=== PATIENT | male | born 1990 | race Caucasian/White ===

== ENCOUNTER 2024-01-26 01:44 | Observation (INO) ==
[2024-01-26] MEDS: SODIUM CHLORIDE 0.9% 1,000 ML IV SCH (02:10)
--- NOTE | 2024-01-26 02:15 | Emergency Department Note ---
Impression & Plan Pulmonary emboli, Chest pain, Shortness of breath, Tachycardia ED Provider Note CHIEF COMPLAINT: Shortness of breath, right-sided chest pain since Wednesday HISTORY OF PRESENT ILLNESS: This 34-year-old male patient presents to the emergency department via private vehicle accompanied by father for evaluation of shortness of breath and right-sided chest pain. This has been ongoing for about 3 days. Patient denies any fever. He states he has had a cough. He states the pain started in the right upper portion of his chest and is now radiating around the side. He states that any physical activity or position changes worsens his symptoms. He feels that his breath catches and he is not able to get a deep breath. He denies any fever or recent illness. No nausea or vomiting. No abdominal pain. No dysuria, urinary frequency, urinary hesitancy, hematuria. The patient denies any leg pain or swelling. No history of similar symptoms. He denies any recent trauma or injury. Patient initially thought symptoms were related to muscular pain from throwing a ball for his dog, he notes he did take some Aleve with some improvement in his pain on Wednesday, but has not been regularly taking this medication. Patient denies any coughing up blood. REVIEW OF SYSTEMS: A 10 system review of systems was performed with positives and pertinent negatives listed in the history of present illness. All other systems were reviewed and are negative. ALLERGIES: NKDA PHYSICAL EXAM: VITALS: Vitals are noted on the nurse's note and reviewed by myself. Patient is tachycardic. GENERAL: This is a 34-year-old male, in no acute distress, nondiaphoretic, well- developed well-nourished. SKIN: The skin was without rashes, erythema, edema, or bruising. There is no tenting of the skin. Capillary refill less than 2 seconds. HEAD: Normocephalic atraumatic. EARS: External auditory canals clear, tympanic membranes pearly theodore without erythema or effusion bilaterally. No hemotympanum. Negative kaufman sign EYES: Pupils equal round and reactive to light and accommodation. Conjunctivae without injection, sclerae without icterus. Extraocular movements intact. NOSE: Patent, turbinates without inflammation or discharge. No sinus tenderness. MOUTH: Mucous membranes moist. Tonsils are not enlarged. Pharynx without erythema or exudate. Uvula midline. Airway patent. Tongue does not deviate. NECK: Supple without nuchal rigidity. No lymphadenopathy. Cervical spine is nontender. No JVD. CHEST: Right anterior lateral reproducible chest wall tenderness to palpation HEART: Regular rate and rhythm without murmurs gallops or rubs. LUNGS: Clear to auscultation bilaterally without wheezes, rales or rhonchi. No retractions or accessory muscle use. ABDOMEN: Positive bowel sounds x 4. Soft, nontender, without masses or organomegaly. Francis sign negative. No guarding or rebound tenderness. MUSCULOSKELETAL: No muscle atrophy, erythema, or edema noted. Full range of motion without joint tenderness in all extremities. No tenderness to palpation. Normal gait. Strength 5/5 throughout. NEURO: Patient was alert and oriented to person place and time. Normal sensation to light and sharp touch. Deep tendon reflexes 2+ throughout. No focal neurological deficits. An order was placed for continuous personnel monitor. The monitor showed a sinus tachycardia at a ventricular rate of 106 bpm, per my interpretation. EKG was reviewed by myself and found to be normal sinus rhythm at a rate of 91 beats per minute and per my interpretation reveals no ST elevation or depression. No T wave inversion. No significant change when compared to EKG completed on 11/04/2023. Imaging as interpreted by myself and the radiologist revealed multiple bilateral PEs with likely mild pulmonary infarction on the right, with radiologist interpretation as above. I agree with the radiologist's findings as based upon my independent interpretation. EMERGENCY DEPARTMENT COURSE: The patient was seen and evaluated as above. The patient presents to the emergency department today for evaluation of right-sided chest pain and shortness of breath. Symptoms been progressing since Wednesday. He is afebrile. He denies any recent illness. He denies any history of PE or DVT. No recent travel and the patient is not on any hormonal therapy. No recent hospitalization or surgical procedures. IV access was obtained, labs were drawn. Labs are reviewed. Per my interpretation, there was leukocytosis of 16,000. No anemia or thrombocytopenia. Renal, hepatic function and electrolytes without significant abnormality. Total bilirubin is elevated at 2.6. Troponin less than 2.3. Respiratory bio fire testing was negative. INR 1.0, PT 10.7. CT Angiogram of the chest was completed given the patient's presentation. This was concerning for multiple bilateral PEs, worse in the right middle lobe with likely mild pulmonary infarction. I discussed the case with my attending physician. Discussed findings with the patient at bedside. The patient was started on IV heparin. I did recommend admission to further manage his illness. The patient was agreeable with this plan. I discussed the case with the leasing manager. I discussed the case with Dr. Hicks, [facility] hospitalist physician. She did agree to evaluate the patient for admission. Please see hospitalist dictation regarding ongoing management and care and for final disposition. This visit is during a period of high volume and high acuity in the emergency department. I attest that I have personally reviewed the patient medication list. I attest that I have reviewed the patient's blood pressure and it was found to be elevated. GCS: 15 In the evaluation and treatment of this patient the following differential diagnoses were entertained: Reactive airway disease, pneumonia, pneumothorax, COPD, CHF, infections, cardiac ischemia, pulmonary embolism, musculoskeletal, gastrointestinal, as well as other pathologies. The chart was completed utilizing [employer] Speech voice recognition software. Grammatical errors, random word insertions, pronoun errors, and incomplete sentences are an occasional consequence of this system due to software limitations, ambient noise, and hardware issues. Any formal questions or concerns about the content, text, or information contained within the body of this dictation should be directly addressed to the provider for clarification. Past Med/Surg History Problem List (Updated 01/26/24 @ 04:28 by Carmen Resendez PA-C) Tachycardia (Acute) Shortness of breath (Acute) Chest pain (Acute) Pulmonary emboli (Acute) Medical History PTSD (post-traumatic stress disorder) Depression with anxiety Hypertension Bipolar affective disorder Surgical History History of cholecystectomy Family History (Updated 01/26/24 @ 04:01 by Indigo Hicks DO) Other Cancer Coronary heart disease Social History Smoking Status: Current every day smoker Tobacco Type: Cigarettes and E-cigarettes / Vaping Preferred Language: French Feels Safe at Home: Yes Allergies Allergies Allergy/AdvReac Type Severity Reaction Status Date / Time No Known Allergies Allergy Unverified 01/26/24 03:55 Home Meds Home Medications Medication Instructions Recorded Confirmed citalopram 20 mg tablet 20 mg PO DAILY 01/26/24 01/26/24 folic acid 400 mcg tablet 400 mcg PO DAILY 01/26/24 01/26/24 lisinopril 10 mg tablet 10 mg PO DAILY 01/26/24 01/26/24 risperidone 0.5 mg tablet 0.5 mg PO DAILY 01/26/24 01/26/24 Results & Data (ED) Vital Signs Vital Signs - 24 hr 01/26/24 01:47 01/26/24 01:57 01/26/24 01:58 Temperature 36.8 C Temperature Source Temporal Artery Scan Pulse Rate 102 H Pulse Rate [Apical] 102 H Respiratory Rate 24 18 Respiratory Effort / Characteristics Non-Labored Spontaneous Respiratory Depth Normal Respiratory Pattern Regular Blood Pressure 127/85 Blood Pressure [Right Arm] 151/94 H Blood Pressure Mean 99 Blood Pressure Mean [Right Arm] 113 Blood Pressure Position Sitting Pulse Oximetry 95 95 96 Oxygen Delivery Method Room Air Room Air Room Air Oxygen Flow Rate 0 Sepsis Recent Fever Within 48 Hours No Sepsis New/Unexplained Change in Mental Status No Sepsis Action Taken by Nursing No Action Required 01/26/24 02:07 Temperature Temperature Source Pulse Rate 100 H Pulse Rate [Apical] Respiratory Rate Respiratory Effort / Characteristics Respiratory Depth Respiratory Pattern Blood Pressure Blood Pressure [Right Arm] Blood Pressure Mean Blood Pressure Mean [Right Arm] Blood Pressure Position Pulse Oximetry Oxygen Delivery Method Oxygen Flow Rate Sepsis Recent Fever Within 48 Hours Sepsis New/Unexplained Change in Mental Status Sepsis Action Taken by Nursing Laboratory Data 01/26/24 02:13 01/26/24 02:13 Lab Results 01/26/24 01/26/24 Range/Units 02:13 02:20 WBC 16.01 H (4.8-10.8) K/ul RBC 4.95 (4.70-6.10) M/uL Hgb 14.7 (14.0-18.0) g/dl POC Hgb 15.0 (14.0-18.0) g/dl Hct 41.8 L (42.0-52.0) % POC Hct 44 (42-52) % MCV 84.4 (80.0-100.0) fL MCH 29.7 (25.0-34.0) pg MCHC 35.2 (32.0-36.0) g/dL RDW Std Deviation 41.0 (36.4-46.3) fL RDW Coeff of Yen 13.3 (11.5-14.5) % Plt Count 244 (130-400) K/uL MPV 9.7 (9.4-12.4) fL Immature Gran % (Auto) 0.6 % Neut % (Auto) 83.6 % Lymph % (Auto) 9.2 % [place] % (Auto) 5.5 % Eos % (Auto) 0.7 % Baso % (Auto) 0.4 % Neut # (Auto) 13.38 H (1.40-6.50) K/uL Lymph # (Auto) 1.47 (1.20-3.40) K/uL [place] # (Auto) 0.88 H (0.11-0.59) K/uL Eos # (Auto) 0.12 (0.00-0.50) K/uL Baso # (Auto) 0.07 (0.00-0.20) K/uL Immature Gran # (Auto) 0.09 (0.01-0.20) K/uL PT 10.7 (9.0-12.0) Seconds INR 1.0 (0.9-1.1) APTT 26 (21-31) Seconds PTT Ratio 1.0 POC Sodium 137 (135-144) mmol/L Sodium 135 L (136-145) mmol/L POC Potassium 3.6 (3.3-5.0) mmol/L Potassium 3.6 (3.5-5.1) mmol/L POC Chloride 103 (101-112) mmol/L Chloride 102 (98-107) mmol/L Carbon Dioxide 21 (21-32) mmol/L POC Total CO2 20 L (24-31) mmol/L Anion Gap 12 H (3-11) POC Anion Gap 18.0 (16-25) mmol/L POC BUN 12 (7-18) mg/dl BUN 13 (6-23) mg/dl Creatinine 0.84 (0.6-1.4) mg/dl POC Creatinine 0.8 (0.6-1.3) mg/dl Est Cr Clr Drug Dosing Not Reportable Est GFR ( Amer) 130.6 ml/min Est GFR (Non-Af Amer) 112.6 ml/min BUN/Creatinine Ratio 15.5 (10-20) Glucose 108 H (70-99(Fasting)) mg/dl POC Glucose (other) 114 H (70-99) mg/dl Calcium 9.4 (8.6-10.3) mg/dl POC Ioniz Calcium Magaly 1.14 (1.12-1.32) mmol/l Magnesium 2.1 (1.7-2.4) mg/dl Total Bilirubin 2.6 H (0.2-1.0) mg/dl AST 24 (13-39) U/L ALT 29 (7-52) U/L Alkaline Phosphatase 67 (34-104) U/L Troponin I High Sens < 2.3 (0-20) pg/ml Total Protein 8.1 (6.0-8.3) gm/dl Albumin 4.4 (3.4-5.0) gm/dl Globulin 3.7 (2.5-4.0) gm/dl Albumin/Globulin Ratio 1.2 (0.9-2) Adenovirus (PCR) Not Detected (NotDetected) B. pertussis DNA (PCR) Not Detected (NotDetected) B.parapertussis DNA PCR Not Detected (NotDetected) C. pneumoniae DNA (PCR) Not Detected (NotDetected) Coronavirus OC43 (PCR) Not Detected (NotDetected) Coronavirus HKU1 (PCR) Not Detected (NotDetected) Coronavirus 229E (PCR) Not Detected (NotDetected) SARS-CoV-2 (PCR) Not Detected (NotDetected) Coronavirus NL63 (PCR) Not Detected (NotDetected) Human Metapneumovir PCR Not Detected (NotDetected) Influenza Type A (PCR) Not Detected (NotDetected) Influenza Type B (PCR) Not Detected (NotDetected) M. pneumoniae (PCR) Not Detected (NotDetected) Parainfluenza 1 (PCR) Not Detected (NotDetected) Parainfluenza 2 (PCR) Not Detected (NotDetected) Parainfluenza 3 (PCR) Not Detected (NotDetected) Parainfluenza 4 (PCR) Not Detected (NotDetected) RSV (PCR) Not Detected (NotDetected) Entero/Rhino (PCR) Not Detected (NotDetected) Administered Medications Heparin Sodium/Dextrose (Heparin Sodium/Dextrose) 25,000 units in 500 mls @ 34 mls/hr IV .[id number] [facility]; Protocol Stop: 02/25/24 03:29 Last Admin: 01/26/24 04:02 Dose: 1,700 units/hr, 34 mls/hr Documented By: JUAN MANUEL Co-signed By: TONIA Discontinued Medications Heparin Sodium (Porcine) (Heparin Sod (Porcine) 1000 Unit/Ml) 1 units IV NOW ONE Stop: 01/26/24 03:27 Last Admin: 01/26/24 04:01 Dose: 7,000 units Documented By: JUAN MANUEL Co-signed By: TONIA Sodium Chloride (Nss) 1,000 mls @ 999 mls/hr IV .Q1H1M [facility] Stop: 01/26/24 03:00 Last Infusion: 01/26/24 03:30 Dose: Infused Documented By: Admin: 01/26/24 02:10 Dose: 999 mls/hr Documented By: TONIA Acetaminophen (Ofirmev) 1,000 mg in 100 mls @ 400 mls/hr IV NOW STA Stop: 01/26/24 02:48 Last Infusion: 01/26/24 03:12 Dose: Infused Documented By: Admin: 01/26/24 02:54 Dose: 400 mls/hr Documented By: MARTI Ioversol (Optiray 320 125ml) 125 ml IV ONCE ONE Stop: 01/26/24 02:39 Last Admin: 01/26/24 02:38 Dose: 118 ml Documented By: CAROLYNE Morphine Sulfate (Morphine Sulfate 2 Mg/Ml Carp) 2 mg IV NOW STA Stop: 01/26/24 03:55 Last Admin: 01/26/24 04:24 Dose: Not Given Documented By: TONIA Nicotine (Nicotine 14 Mg/24 Hr Patch) 1 patch TD NOW STA Stop: 01/26/24 03:54 Last Admin: 01/26/24 04:12 Dose: 1 patch Documented By: TONIA Imaging Data Radiologist's Impression: Chest CTA 01/26/24 02:00 CR Exam(s): CTA CHEST IV Amt: 118 ML OPTIRAY 320 EXAM: CT Angiography Chest With Intravenous Contrast CLINICAL HISTORY: Reason for exam: Dyspnea. TECHNIQUE: Axial computed tomographic angiography images of the chest with intravenous contrast. CTDI is 28.14 mGy and DLP is 831.42 mGy-cm. Automated exposure control was utilized for the study. A dose lowering technique was utilized adhering to the principles of ALARA. MIP reconstructed images were created and reviewed. COMPARISON: No relevant prior studies available. FINDINGS: Pulmonary arteries: Multiple segmental pulmonary emboli bilaterally demonstrated. Thrombus burden is worse in the middle lobe. There is no central or hilar pulmonary embolus. Central pulmonary arteries are normal in caliber. Aorta: No acute findings. No thoracic aortic aneurysm. Lungs: Subpleural groundglass attenuation peripheral right middle lobe likely represents mild pulmonary infarction. There is also medial subsegmental atelectasis in the middle lobe and mild right basilar subsegmental atelectasis. Linear right upper lobe atelectasis. No mass. Pleural space: Trace, layering right pleural effusion. No pneumothorax. Heart: Heart is normal in size. 1:1 RV/LV ratio. No pericardial effusion. No coronary artery calcification visualized. Mediastinum: Small calcified paratracheal and left hilar lymph nodes demonstrated. No pathologic intrathoracic lymph node enlargement. Bones/joints: No acute fracture. No dislocation. Soft tissues: Unremarkable. Lymph nodes: See above. Upper abdomen: Diffuse fatty infiltration of liver. Subcentimeter calcified granuloma in the liver noted. Cholecystectomy clips visualized. Punctate calcified granuloma in the spleen. IMPRESSION: 1. Multiple segmental pulmonary emboli bilaterally demonstrated. Thrombus burden is worse in the middle lobe. There is no central or hilar pulmonary embolus. 2. Subpleural groundglass attenuation peripheral right middle lobe likely represents mild pulmonary infarction. 3. Trace, layering right pleural effusion. Communications: Verify Receipt Electronically signed by: Luis F Wong MD 01/26/24 03:05 AM Discharge Plan Visit Data Chief Complaint: Shortness of Breath/Dyspnea Stated Complaint: BREATHING DIFFICULTY AND PAIN ED Provider: Yaya Roper ED Midlevel Provider: Carmen Resendez Discharge Problem: Pulmonary emboli, Chest pain, Shortness of breath, Tachycardia Patient Disposition: Admitted As Inpatient Discharge Instructions Interventions: ED Discharge Assessment Last Done: 01/26/24 04:07
[2024-01-26 02:34] LABS: iSTAT Creatinine 0.8 mg/dl (0.6-1.3); iSTAT Ionized Calcium 1.14 mmol/l (1.12-1.32); iSTAT Potassium 3.6 mmol/L (3.3-5.0)
[2024-01-26 02:36] LABS: Basophils # (auto) 0.07 K/uL (0.00-0.20); Basophils % (auto) 0.4 %; Eosinophils # (auto) 0.12 K/uL (0.00-0.50); Eosinophils % (auto) 0.7 %; Hematocrit (blood only) 41.8 % (42.0-52.0); Hemoglobin 14.7 g/dl (14.0-18.0); Immature Granulocytes # (auto) 0.09 K/uL (0.01-0.20); Immature Granulocytes % (auto) 0.6 %; Lymphocytes # (auto) 1.47 K/uL (1.20-3.40); Lymphocytes % (auto) 9.2 %; Mean Corpuscular Hemoglobin 29.7 pg (25.0-34.0); Mean Corpuscular Hgb Conc 35.2 g/dL (32.0-36.0); Mean Corpuscular Volume 84.4 fL (80.0-100.0); Mean Platelet Volume 9.7 fL (9.4-12.4); Monocytes # (auto) 0.88 K/uL (0.11-0.59); Monocytes % (auto) 5.5 %; Neutrophils # (auto) 13.38 K/uL (1.40-6.50); Neutrophils % (auto) 83.6 %; Platelet Count 244 K/uL (130-400); RDW Coefficient of Variation 13.3 % (11.5-14.5); Red Blood Count 4.95 M/uL (4.70-6.10); White Blood Count 16.01 K/ul (4.8-10.8)
[2024-01-26] MEDS: OPTIRAY 320 125ml IV ONE (02:38)
[2024-01-26 02:48] LABS: Alanine Aminotransferase 29 U/L (7-52); Albumin Globulin Ratio 1.2 (0.9-2); Albumin Level 4.4 gm/dl (3.4-5.0); Alkaline Phosphatase 67 U/L (34-104); Anion Gap 12 (3-11); Aspartate Aminotransferase 24 U/L (13-39); BUN Creatinine Ratio 15.5 (10-20); Bilirubin,Total 2.6 mg/dl (0.2-1.0); Blood Urea Nitrogen 13 mg/dl (6-23); Calcium 9.4 mg/dl (8.6-10.3); Carbon Dioxide 21 mmol/L (21-32); Chloride 102 mmol/L (98-107); Est GFR (African American) 130.6 ml/min; Est GFR (Non-African American) 112.6 ml/min; Globulin 3.7 gm/dl (2.5-4.0); Glucose 108 mg/dl (70-99(Fasting)); Magnesium 2.1 mg/dl (1.7-2.4); Potassium 3.6 mmol/L (3.5-5.1); Sodium 135 mmol/L (136-145); Total Protein 8.1 gm/dl (6.0-8.3)
[2024-01-26 02:53] LABS: Troponin I High Sensitivity < 2.3 pg/ml (0-20)
[2024-01-26] MEDS: ACETAMINOPHEN 1,000 MG/100 ML VIAL IV STA (02:54)
[2024-01-26 02:58] LABS: Partial Thromboplastin Time 26 Seconds (21-31); Prothrombin Time 10.7 Seconds (9.0-12.0)
--- NOTE | 2024-01-26 03:06 | CT Scan Report ---
Exam(s): CTA CHEST IV Amt: 118 ML OPTIRAY 320 EXAM: CT Angiography Chest With Intravenous Contrast CLINICAL HISTORY: Reason for exam: Dyspnea. TECHNIQUE: Axial computed tomographic angiography images of the chest with intravenous contrast. CTDI is 28.14 mGy and DLP is 831.42 mGy-cm. Automated exposure control was utilized for the study. A dose lowering technique was utilized adhering to the principles of ALARA. MIP reconstructed images were created and reviewed. COMPARISON: No relevant prior studies available. FINDINGS: Pulmonary arteries: Multiple segmental pulmonary emboli bilaterally demonstrated. Thrombus burden is worse in the middle lobe. There is no central or hilar pulmonary embolus. Central pulmonary arteries are normal in caliber. Aorta: No acute findings. No thoracic aortic aneurysm. Lungs: Subpleural groundglass attenuation peripheral right middle lobe likely represents mild pulmonary infarction. There is also medial subsegmental atelectasis in the middle lobe and mild right basilar subsegmental atelectasis. Linear right upper lobe atelectasis. No mass. Pleural space: Trace, layering right pleural effusion. No pneumothorax. Heart: Heart is normal in size. 1:1 RV/LV ratio. No pericardial effusion. No coronary artery calcification visualized. Mediastinum: Small calcified paratracheal and left hilar lymph nodes demonstrated. No pathologic intrathoracic lymph node enlargement. Bones/joints: No acute fracture. No dislocation. Soft tissues: Unremarkable. Lymph nodes: See above. Upper abdomen: Diffuse fatty infiltration of liver. Subcentimeter calcified granuloma in the liver noted. Cholecystectomy clips visualized. Punctate calcified granuloma in the spleen. IMPRESSION: 1. Multiple segmental pulmonary emboli bilaterally demonstrated. Thrombus burden is worse in the middle lobe. There is no central or hilar pulmonary embolus. 2. Subpleural groundglass attenuation peripheral right middle lobe likely represents mild pulmonary infarction. 3. Trace, layering right pleural effusion. Communications: Verify Receipt Electronically signed by: Luis F Wong MD 01/26/24 03:05 AM
[2024-01-26] MEDS ORDERED: Heparin IV Adult Wt-Based Standard w/ INITIAL Bolus Protocol IV STA (03:10)
[2024-01-26 03:15] LABS: Adenovirus PCR Not Detected (NotDetected); Bordetella parapertussis PCR Not Detected (NotDetected); Bordetella pertussis PCR Not Detected (NotDetected); Chlamydia pneumoniae PCR Not Detected (NotDetected); Coronavirus 229E PCR Not Detected (NotDetected); Coronavirus CoV-2 (COVID19)PCR Not Detected (NotDetected); Coronavirus HKU1 PCR Not Detected (NotDetected); Coronavirus NL63 PCR Not Detected (NotDetected); Coronavirus OC43PCR Not Detected (NotDetected); Human Metapneumovirus PCR Not Detected (NotDetected); Influenza A PCR Not Detected (NotDetected); Influenza B PCR Not Detected (NotDetected); Mycoplasma pneumoniae PCR Not Detected (NotDetected); Parainfluenza Virus 1 PCR Not Detected (NotDetected); Parainfluenza Virus 2 PCR Not Detected (NotDetected); Parainfluenza Virus 3 PCR Not Detected (NotDetected); Parainfluenza Virus 4 PCR Not Detected (NotDetected); Respiratory Syncytial VirusPCR Not Detected (NotDetected); Rhinovirus/Enterovirus PCR Not Detected (NotDetected)
--- NOTE | 2024-01-26 03:28 | History & Physical Report ---
Date of Service January 26, 2024 Assessment & Plan (1) Pulmonary emboli: Plan: 34yo male with several days of pleuritic chest pain and SOB found to have bilateral PE. Patient hemodynamically stable, adequate oxygenation on room air. PESI Score Class I - very low risk for mortality. Shock index= 0.6. Unprovoked. No prior personal history of VTE. No family history of VTE. -Admit to PCU -Heparin gtt initiated in ER - will continue. Transition to oral NOAC prior to discharge, possibly later today -Toradol for pain control -Lidoderm patch to right chest wall for pain control -Incentive spirometry - encourage hourly use *Patient recently obtained insurance - may need some assistance finding a new PCP and a Psychiatrist for outpatient followup* Plan Hypertension - stable -Continue Lisinopril 10mg po daily Bipolar disorder - stable -Continue Risperdal Anxiety/Depression - stable -Continue Celexa F/E/N - Saline lock. Electrolytes WNL. Regular diet as tolerated Ppx - Heparin gtt for DVT Code - Full Dispo - Admit to PCU History of Present Illness Chief Complaint: Pulmonary emboli Primary Care Provider: NO PCP Sorin Fernandez is a 34yo male with history of HTN, BiPolar disorder, PTSD and Anxiety/Depression presenting with right sided chest pain and SOB. Patient reports progressive right sided chest pain for the last 3-4 days. Pleuritic in nature, severe, radiating into the back and flanks. He also has some shortness of breath. Nausea and diarrhea as well. Denies fever, chills, left sided chest pain, palpitations. No abdominal pain. No dizziness or syncope. He did have some pain and swelling in his right leg in the past but this was many months ago - no recent leg pain, swelling or cramping. No personal or family history of VTE. No trauma or periods of immobility. In the ER he is afebrile, HD stable, NAD ER Course: Tylenol Heparin Morphine 2mg ordered - not yet given Allergies Allergy/AdvReac Type Severity Reaction Status Date / Time No Known Allergies Allergy Unverified 01/26/24 03:55 Home Medications Medication Instructions Recorded Confirmed Type citalopram 20 mg tablet 20 mg PO DAILY 01/26/24 01/26/24 History folic acid 400 mcg tablet 400 mcg PO DAILY 01/26/24 01/26/24 History lisinopril 10 mg tablet 10 mg PO DAILY 01/26/24 01/26/24 History risperidone 0.5 mg tablet 0.5 mg PO DAILY 01/26/24 01/26/24 History Past Med/Surg History Problem List (Updated 01/26/24 @ 04:07 by Indigo Hicks DO) Pulmonary emboli Medical History (Updated 01/26/24 @ 04:07 by Indigo Hicks DO) PTSD (post-traumatic stress disorder) Depression with anxiety Hypertension Bipolar affective disorder Surgical History (Updated 01/26/24 @ 04:01 by Indigo Hicks DO) History of cholecystectomy Family History (Updated 01/26/24 @ 04:01 by Indigo Hicks DO) Other Cancer Coronary heart disease Social History Smoking Status: Current every day smoker Tobacco Type: Cigarettes and E-cigarettes / Vaping Preferred Language: Divehi Feels Safe at Home: Yes Review of Systems Review of Systems: All systems reviewed & are unremarkable except as noted in HPI & below Physical Exam Physical Exam: General: patient resting comfortably, NAD, non-toxic in appearance, AA&O x 4 Skin: warm, dry, intact, no rashes or lesions HEENT: NC/AT, PERRL, EOMI, anicteric sclera, conjunctiva without injection, external ear normal to inspection and nontender, nares patent, moist mucus membranes, dentition intact, no oropharyngeal lesions, neck supple, trachea mid line, no LAD, no thyromegaly, no JVD Heart: +S1/S2, regular, no m/r/g Lungs: short, shallow breaths due to pain, equal air entry bilaterally, no rales/rhonchi/wheezes Abd: +BS, soft, NT/ND, no masses/organomegaly/ascites Ext: warm, 2+ pulses in UE/LE bilaterally, no clubbing/cyanosis or edema Neuro: nonfocal, patient AA&O x 4, speech intact, no facial droop, moving all extremities on command with equal strength 5/5 Results & Data Results & Data Vital Signs (Past 12 Hours) Vital Signs Temp Pulse Pulse Resp BP BP Pulse Ox 01/26/24 02:07 100 H 01/26/24 01:58 96 01/26/24 01:57 102 H 18 151/94 H 95 01/26/24 01:47 36.8 C 102 H 24 127/85 95 O2 Del Method O2 Flow Rate 01/26/24 02:07 01/26/24 01:58 Room Air 0 01/26/24 01:57 Room Air 01/26/24 01:47 Room Air Laboratory Results Laboratory Results WBC 16.01 K/ul (4.8-10.8) H 01/26/24 02:13 RBC 4.95 M/uL (4.70-6.10) 01/26/24 02:13 Hgb 14.7 g/dl (14.0-18.0) 01/26/24 02:13 POC Hgb 15.0 g/dl (14.0-18.0) 01/26/24 02:20 Hct 41.8 % (42.0-52.0) L 01/26/24 02:13 POC Hct 44 % (42-52) 01/26/24 02:20 MCV 84.4 fL (80.0-100.0) 01/26/24 02:13 MCH 29.7 pg (25.0-34.0) 01/26/24 02:13 MCHC 35.2 g/dL (32.0-36.0) 01/26/24 02:13 RDW Std Deviation 41.0 fL (36.4-46.3) 01/26/24 02:13 RDW Coeff of Yen 13.3 % (11.5-14.5) 01/26/24 02:13 Plt Count 244 K/uL (130-400) 01/26/24 02:13 MPV 9.7 fL (9.4-12.4) 01/26/24 02:13 Immature Gran % (Auto) 0.6 % 01/26/24 02:13 Neut % (Auto) 83.6 % 01/26/24 02:13 Lymph % (Auto) 9.2 % 01/26/24 02:13 Mcmullen % (Auto) 5.5 % 01/26/24 02:13 Eos % (Auto) 0.7 % 01/26/24 02:13 Baso % (Auto) 0.4 % 01/26/24 02:13 Neut # (Auto) 13.38 K/uL (1.40-6.50) H 01/26/24 02:13 Lymph # (Auto) 1.47 K/uL (1.20-3.40) 01/26/24 02:13 Mcmullen # (Auto) 0.88 K/uL (0.11-0.59) H 01/26/24 02:13 Eos # (Auto) 0.12 K/uL (0.00-0.50) 01/26/24 02:13 Baso # (Auto) 0.07 K/uL (0.00-0.20) 01/26/24 02:13 Immature Gran # (Auto) 0.09 K/uL (0.01-0.20) 01/26/24 02:13 PT 10.7 Seconds (9.0-12.0) 01/26/24 02:13 INR 1.0 (0.9-1.1) 01/26/24 02:13 APTT 26 Seconds (21-31) 01/26/24 02:13 PTT Ratio 1.0 01/26/24 02:13 POC Sodium 137 mmol/L (135-144) 01/26/24 02:20 Sodium 135 mmol/L (136-145) L 01/26/24 02:13 POC Potassium 3.6 mmol/L (3.3-5.0) 01/26/24 02:20 Potassium 3.6 mmol/L (3.5-5.1) 01/26/24 02:13 POC Chloride 103 mmol/L (101-112) 01/26/24 02:20 Chloride 102 mmol/L (98-107) 01/26/24 02:13 Carbon Dioxide 21 mmol/L (21-32) 01/26/24 02:13 POC Total CO2 20 mmol/L (24-31) L 01/26/24 02:20 Anion Gap 12 (3-11) H 01/26/24 02:13 POC Anion Gap 18.0 mmol/L (16-25) 01/26/24 02:20 POC BUN 12 mg/dl (7-18) 01/26/24 02:20 BUN 13 mg/dl (6-23) 01/26/24 02:13 Creatinine 0.84 mg/dl (0.6-1.4) 01/26/24 02:13 POC Creatinine 0.8 mg/dl (0.6-1.3) 01/26/24 02:20 Est Cr Clr Drug Dosing Not Reportable 01/26/24 02:13 Est GFR ( Amer) 130.6 ml/min 01/26/24 02:13 Est GFR (Non-Af Amer) 112.6 ml/min 01/26/24 02:13 BUN/Creatinine Ratio 15.5 (10-20) 01/26/24 02:13 Glucose 108 mg/dl (70-99(Fasting)) H 01/26/24 02:13 POC Glucose (other) 114 mg/dl (70-99) H 01/26/24 02:20 Calcium 9.4 mg/dl (8.6-10.3) 01/26/24 02:13 POC Ioniz Calcium Magaly 1.14 mmol/l (1.12-1.32) 01/26/24 02:20 Magnesium 2.1 mg/dl (1.7-2.4) 01/26/24 02:13 Total Bilirubin 2.6 mg/dl (0.2-1.0) H 01/26/24 02:13 AST 24 U/L (13-39) 01/26/24 02:13 ALT 29 U/L (7-52) 01/26/24 02:13 Alkaline Phosphatase 67 U/L (34-104) 01/26/24 02:13 Troponin I High Sens < 2.3 pg/ml (0-20) 01/26/24 02:13 Total Protein 8.1 gm/dl (6.0-8.3) 01/26/24 02:13 Albumin 4.4 gm/dl (3.4-5.0) 01/26/24 02:13 Globulin 3.7 gm/dl (2.5-4.0) 01/26/24 02:13 Albumin/Globulin Ratio 1.2 (0.9-2) 01/26/24 02:13 Adenovirus (PCR) Not Detected (NotDetected) 01/26/24 02:13 B. pertussis DNA (PCR) Not Detected (NotDetected) 01/26/24 02:13 B.parapertussis DNA PCR Not Detected (NotDetected) 01/26/24 02:13 C. pneumoniae DNA (PCR) Not Detected (NotDetected) 01/26/24 02:13 Coronavirus OC43 (PCR) Not Detected (NotDetected) 01/26/24 02:13 Coronavirus HKU1 (PCR) Not Detected (NotDetected) 01/26/24 02:13 Coronavirus 229E (PCR) Not Detected (NotDetected) 01/26/24 02:13 SARS-CoV-2 (PCR) Not Detected (NotDetected) 01/26/24 02:13 Coronavirus NL63 (PCR) Not Detected (NotDetected) 01/26/24 02:13 Human Metapneumovir PCR Not Detected (NotDetected) 01/26/24 02:13 Influenza Type A (PCR) Not Detected (NotDetected) 01/26/24 02:13 Influenza Type B (PCR) Not Detected (NotDetected) 01/26/24 02:13 M. pneumoniae (PCR) Not Detected (NotDetected) 01/26/24 02:13 Parainfluenza 1 (PCR) Not Detected (NotDetected) 01/26/24 02:13 Parainfluenza 2 (PCR) Not Detected (NotDetected) 01/26/24 02:13 Parainfluenza 3 (PCR) Not Detected (NotDetected) 01/26/24 02:13 Parainfluenza 4 (PCR) Not Detected (NotDetected) 01/26/24 02:13 RSV (PCR) Not Detected (NotDetected) 01/26/24 02:13 Entero/Rhino (PCR) Not Detected (NotDetected) 01/26/24 02:13 Impressions Chest CTA 01/26/24 02:00 CR Exam(s): CTA CHEST IV Amt: 118 ML OPTIRAY 320 EXAM: CT Angiography Chest With Intravenous Contrast CLINICAL HISTORY: Reason for exam: Dyspnea. TECHNIQUE: Axial computed tomographic angiography images of the chest with intravenous contrast. CTDI is 28.14 mGy and DLP is 831.42 mGy-cm. Automated exposure control was utilized for the study. A dose lowering technique was utilized adhering to the principles of ALARA. MIP reconstructed images were created and reviewed. COMPARISON: No relevant prior studies available. FINDINGS: Pulmonary arteries: Multiple segmental pulmonary emboli bilaterally demonstrated. Thrombus burden is worse in the middle lobe. There is no central or hilar pulmonary embolus. Central pulmonary arteries are normal in caliber. Aorta: No acute findings. No thoracic aortic aneurysm. Lungs: Subpleural groundglass attenuation peripheral right middle lobe likely represents mild pulmonary infarction. There is also medial subsegmental atelectasis in the middle lobe and mild right basilar subsegmental atelectasis. Linear right upper lobe atelectasis. No mass. Pleural space: Trace, layering right pleural effusion. No pneumothorax. Heart: Heart is normal in size. 1:1 RV/LV ratio. No pericardial effusion. No coronary artery calcification visualized. Mediastinum: Small calcified paratracheal and left hilar lymph nodes demonstrated. No pathologic intrathoracic lymph node enlargement. Bones/joints: No acute fracture. No dislocation. Soft tissues: Unremarkable. Lymph nodes: See above. Upper abdomen: Diffuse fatty infiltration of liver. Subcentimeter calcified granuloma in the liver noted. Cholecystectomy clips visualized. Punctate calcified granuloma in the spleen. IMPRESSION: 1. Multiple segmental pulmonary emboli bilaterally demonstrated. Thrombus burden is worse in the middle lobe. There is no central or hilar pulmonary embolus. 2. Subpleural groundglass attenuation peripheral right middle lobe likely represents mild pulmonary infarction. 3. Trace, layering right pleural effusion. Communications: Verify Receipt Electronically signed by: Luis F Wong MD 01/26/24 03:05 AM ECG Additional Comments: EKG - per my interpretation study shows NSR at 91bpm, no acute ischemic changes Code Status & VTE Plan VTE Prophylaxis Plan VTE Prophylaxis will be ordered: Yes PG Care Time/CCT Total # of Minutes Spent Total Time Spent with Patient: Total time spent is greater than 50% in coordination of care (as documented) at patient's floor/unit and/or counseling patient: Coding Level of Care Code 73607 INT INP/OBS CARE 3/75MIN Diagnoses Pulmonary emboli I26.99
[2024-01-26] MEDS ORDERED: Patient's ALLERGY Info needs ENTERED STA (03:40)
[2024-01-26] MEDS: HEPARIN SOD (PORCINE) 1000 UNIT/ML IV ONE (04:01)
[2024-01-26] MEDS: HEPARIN SODIUM/DEXTROSE 25,000 UNITS/500 ML BAG IV SCH (04:02)
[2024-01-26] MEDS ORDERED: ONDANSETRON INJ 2 MG/ML 2 ML VIAL IV PRN (04:06)
[2024-01-26] MEDS: NICOTINE 14 MG/24 HR PATCH TD STA (04:12)
[2024-01-26] MEDS: MoRPHine SULFATE 2 MG/ML CARP IV STA ×4 (04:24→23:09)
[2024-01-26] MEDS: LIDOCAINE 5% 1 PATCH TD STA (04:30)
--- NOTE | 2024-01-26 07:31 | Hospitalist Progress Note ---
Date of Service January 26, 2024 Assessment & Plan (1) Pulmonary emboli: (2) PTSD (post-traumatic stress disorder): (3) Depression with anxiety: (4) Hypertension: (5) Bipolar affective disorder: Plan Patient is a 34 year old man presenting to the hospital for 3 day hx of SOB, right sided chest pain with chest CT done in the ER showing pulmonary emboli Pulmonary emboli - presented to ER for 3 day hx of SOB, right sided chest pain - negative troponin - chest CT showed multiple segmental pulmonary emboli, R pleural effusion, and possible pulmonary infarction - no current leg pain, no suspicion of DVT. Unprovoked PE, no recent surgeries, no hx of malignancy, no recent stasis. RFs - obesity, hx of smoking and cannabis use - switch from IV heparin to Eliquis. 10 mg x2 daily for 7 days and then decrease to 5 mg x2 daily for 6 months. - take acetaminophen for pain as needed Hypertension - continue lisinopril 10 mg PO daily and f/u for this with primary care Depression - continue citalopram 20 mg PO daily for this with primary care Bipolar affective disorder - continue risperidone 0.5 risperidone mg PO daily for this with primary care DVT prophylaxis: IV heparin Dispo: PCU telemetry Diet: regular Code status: full code Admission and Anticipated Discharge Date Admission Date: January 26, 2024 Subjective Patient is a 34 year old man that presented to the ER for SOB and chest pain that's been occurring for 3 days. Patient was in park with dog when 3 days ago when he suddenly felt like he pulled a muscle. No fever, some coughing when breathing in, some wheezing. [place] shortness of breath. At home, laying on stomach with pressure under right side improved the pain the pain slightly. Wednesday - 09/16 pain Wednesday - 11/16 pain Wednesday (today) - 02/16 Unable to take a deep breath without sharp pain that radiates into ribs and then flank. Right side diaphragm pain. Feels like someone is sitting on his right sided diaphragm. Pain is reproducible upon palpation. In the last week, not static for a long time. Pt reports that he is active, no long trips, no flights, not on hormone therapy. Family hx lung cancer - MGF, MGM diagnosed in their 60s-70s, both heavy smokers. No recent surgeries - cholecystectomy over 15 years ago. No prior occurrence. Had an instance of leg swelling 4-5 months ago. Not sure what caused it. Had right legged swelling that moved to the left leg. Leg became hard and swollen. Went to [employer] [facility] and was given steroid which fixed the swollen legs. O2 sat of 92% on room air. RR - 20-38 Review of Systems Respiratory: as per Subjective / HPI (No sputum), + dyspnea and + pain on inspiration Cardiovascular: Additional Comments: Pt reported no chest pain, palpitations, tachycardia Physical Exam Respiratory: able to speak in complete sentences and symmetric chest movement Auscultation: lungs clear to auscultation bilaterally Fast, shallow breaths taken Cardiovascular: Muffled heart sounds. RRR Gastrointestinal (Abdomen): normal bowel sounds, soft, nontender, no hepatosplenomegaly Musculoskeletal: Legs had no edema, bulging, discoloration Skin: no rashes, warm and dry Results & Data Results & Data Vital Signs (Past 12 Hours) Vital Signs Temp Pulse Pulse Resp BP BP Pulse Ox 01/26/24 04:37 36.9 C 79 22 139/85 94 01/26/24 04:26 74 26 H 139/85 93 01/26/24 04:26 01/26/24 03:31 83 22 135/85 94 01/26/24 02:07 100 H 01/26/24 01:58 96 01/26/24 01:57 102 H 18 151/94 H 95 01/26/24 01:47 36.8 C 102 H 24 127/85 95 Pulse Ox O2 Del Method O2 Del Method O2 Flow Rate 01/26/24 04:37 Room Air 01/26/24 04:26 Room Air 01/26/24 04:26 93 Room Air 01/26/24 03:31 Room Air 01/26/24 02:07 01/26/24 01:58 Room Air 0 01/26/24 01:57 Room Air 01/26/24 01:47 Room Air Laboratory Results WBC count 16.01 K/ul H Neutrophils 13.38 K/ul H Monocytes 0.88 H Bilirubin - 2.6 H, liver function tests normal POC total CO2 - 20 mm/L H Anion gap - 12 H Diagnostic Findings Chest CT indicated: "1. Multiple segmental pulmonary emboli bilaterally demonstrated. Thrombus burden is worse in the middle lobe. There is no central or hilar pulmonary embolus. 2. Subpleural groundglass attenuation peripheral right middle lobe likely represents mild pulmonary infarction. 3. Trace, layering right pleural effusion. " Per radiologist Medications Administered IV drip heparin at 25,000 units in 500 mls Ketoralac tromethamine 15 mg via IV Lisinopril 10 PO daily Resident Activity Tracking Resident Involvement: Resident Care Provided Care Provided: Adult [facility] Medicine Resident Supervision Co-Signing Physician Notes Resident Supervision I interviewed and examined the patient and verified the [place] history and physical, reviewed labs and image studies and agree with findings and care plan noted above Unprovoked PE: transition from heparin ggt to DOAC today. Vital Signs stable Pleuritic pain: Lidocaine patch, Tylenol prn, morphine 2mg x3. Keegan Mayo, PGY2 Attending Physician Supervision Note: I independently interviewed and examined the patient and verified the [place] h istory and physical, reviewed labs and image studies and agree with findings and care plan noted above. Came back from rest room - dyspneic. Lungs - CTA. HR in 80s, systolic 130s. Acute PE - extensive with areas of infarction. Hypoxia needing O2. -continue heparin drip until hemodynamically stable -Pain control.
[2024-01-26] MEDS: lisinopril 10 MG TAB PO SCH (09:43)
[2024-01-26] MEDS: CITALOPRAM 20 MG TAB PO SCH (09:43)
[2024-01-26] MEDS: FOLIC ACID 400 MCG TAB PO SCH (09:43)
[2024-01-26] MEDS: risperiDONE 0.5 MG TABLET PO SCH (09:43)
[2024-01-26 11:00] LABS: ANTI-Xa, UFH(UnfractionatedHep 0.23 IU/ml (0.3-0.7)
[2024-01-26] MEDS: KETOROLAC TROMETHAMINE 15 MG/ML VIAL IV PRN (15:21)
[2024-01-26] MEDS: MoRPHine SULFATE 2 MG/ML CARP IV PRN (18:15)
[2024-01-26 18:41] LABS: ANTI-Xa, UFH(UnfractionatedHep 0.22 IU/ml (0.3-0.7)
[2024-01-26] MEDS: ACETAMINOPHEN 325 MG TAB PO PRN (20:32)
[2024-01-27 01:21] LABS: ANTI-Xa, UFH(UnfractionatedHep 0.24 IU/ml (0.3-0.7)
--- NOTE | 2024-01-27 06:10 | Electrocardiogram Report ---
Test Reason : Blood Pressure : */* mmHG Vent. Rate : 91 BPM Atrial Rate : 91 BPM P-R Int : 142 ms QRS Dur : 88 ms QT Int : 364 ms P-R-T Axes : 32 56 40 degrees QTcB Int : 447 ms Normal sinus rhythm Low voltage QRS Borderline ECG When compared with ECG of 04-Nov-2023 03:03, No significant change was found Confirmed by Jaime Stanley ([id number]) on 01/27/2024 6:10:39 AM Referred By: REFERRED SELF Confirmed By: Jaime Stanley
[2024-01-27 06:36] LABS: Basophils # (auto) 0.07 K/uL (0.00-0.20); Basophils % (auto) 0.6 %; Eosinophils # (auto) 0.39 K/uL (0.00-0.50); Eosinophils % (auto) 3.5 %; Hematocrit (blood only) 36.6 % (42.0-52.0); Immature Granulocytes # (auto) 0.09 K/uL (0.01-0.20); Immature Granulocytes % (auto) 0.8 %; Lymphocytes # (auto) 2.07 K/uL (1.20-3.40); Lymphocytes % (auto) 18.4 %; Mean Corpuscular Hgb Conc 35.5 g/dL (32.0-36.0); Mean Corpuscular Volume 84.3 fL (80.0-100.0); Mean Platelet Volume 9.5 fL (9.4-12.4); Monocytes # (auto) 0.89 K/uL (0.11-0.59); Monocytes % (auto) 7.9 %; Neutrophils # (auto) 7.75 K/uL (1.40-6.50); Neutrophils % (auto) 68.8 %; Platelet Count 200 K/uL (130-400); RDW Coefficient of Variation 13.5 % (11.5-14.5); RDW Standard Deviation 41.8 fL (36.4-46.3); Red Blood Count 4.34 M/uL (4.70-6.10); White Blood Count 11.26 K/ul (4.8-10.8)
[2024-01-27 06:57] LABS: Prothrombin Time 10.6 Seconds (9.0-12.0)
[2024-01-27 07:00] LABS: Albumin Globulin Ratio 1.2 (0.9-2); Albumin Level 3.7 gm/dl (3.4-5.0); BUN Creatinine Ratio 15.2 (10-20); Bilirubin,Total 1.3 mg/dl (0.2-1.0); Calcium 9.1 mg/dl (8.6-10.3); Creatinine Clr Calc Pharmacy 168.8 ml/min; Est GFR (African American) 133.9 ml/min; Est GFR (Non-African American) 115.5 ml/min; Globulin 3.2 gm/dl (2.5-4.0); Total Protein 6.9 gm/dl (6.0-8.3)
--- NOTE | 2024-01-27 07:54 | Hospitalist Progress Note ---
Date of Service January 27, 2024 Assessment & Plan (1) Pulmonary emboli: (2) PTSD (post-traumatic stress disorder): (3) Depression with anxiety: (4) Hypertension: (5) Bipolar affective disorder: Plan Patient is a 34 year old man presenting to the hospital for 4 day hx of SOB, right sided chest pain with chest CT done in the ER showing pulmonary emboli and right-sided pulmonary infarction Pulmonary emboli - presented to ER for 3 day hx of SOB, right sided chest pain - negative troponin - chest CT showed multiple segmental pulmonary emboli, R pleural effusion, and possible pulmonary infarction - no leg pain, no suspicion of DVT. Unprovoked PE, no recent surgeries, no hx of malignancy, no recent stasis. RFs - obesity, hx of smoking and cannabis use - two-step test performed with no impact on O2 levels, no need for oxygen at home. - Pt was treated with IV heparin in hospital. Will switch to PO Eliquis for outpatient . 10 mg x2 daily for 7 days and then decrease to 5 mg x2 daily for 6 months. - Recommend workup for unprovoked PE by primary care. - take acetaminophen for pain as needed, consider oxycodone PO. Hypertension - continue lisinopril 10 mg PO daily and f/u for this with primary care Depression - continue citalopram 20 mg PO daily and f/u with primary care Bipolar affective disorder - continue risperidone 0.5 risperidone mg PO daily and f/u with primary care DVT prophylaxis: IV heparin Dispo: PCU telemetry Diet: regular Code status: full code Admission and Anticipated Discharge Date Admission Date: January 26, 2024 Subjective Patient is a 34 year old man with symptoms SOB and chest pain that's been occurring for 4 days with a negative troponin test and a CT positive for pulmonary emboli with pulmonary infarction. Feels like he can breath a little bit better, can take slightly deeper breaths. Some shortness of breath, patient reported wheezing almost gone -- still rates pain 10/10. Have some feelings of chest pressure, no palpitations, no tachycardia, and no arm and shoulder pain. Physical Exam Respiratory: Auscultation: lungs clear to auscultation bilaterally Coughing, shallow, fast breaths. Cardiovascular: RRR, no murmur, no edema Musculoskeletal: No edema in legs, no discoloration, nor bulging. Skin: no rashes, warm and dry Results & Data Results & Data Vital Signs (Past 12 Hours) Vital Signs Temp Pulse Pulse Pulse Resp BP Pulse Ox 01/27/24 07:00 52 L 01/27/24 02:55 36.6 C 79 18 124/80 96 01/27/24 00:34 01/26/24 22:40 83 01/26/24 22:38 36.7 C 83 18 115/78 95 01/26/24 21:00 01/26/24 19:57 36.7 C 78 20 122/84 93 O2 Del Method O2 Flow Rate 01/27/24 07:00 01/27/24 02:55 Room Air 01/27/24 00:34 Nasal Cannula 4 01/26/24 22:40 01/26/24 22:38 Nasal Cannula 4 01/26/24 21:00 Nasal Cannula 4 01/26/24 19:57 Nasal Cannula 4
[2024-01-27 08:17] LABS: ANTI-Xa, UFH(UnfractionatedHep 0.32 IU/ml (0.3-0.7)
[2024-01-27] MEDS: MoRPHine SULFATE 2 MG/ML CARP IV STA (09:53)
[2024-01-27] MEDS: NICOTINE 14 MG/24 HR PATCH TD SCH (09:54)
[2024-01-27 11:24] VITALS: RESP 18; TEMP 97.9; O2SAT 93
[2024-01-27] MEDS: HEPARIN DRIP- STOP ORDER STA (12:28)
[2024-01-27] MEDS: APIXABAN 5 MG TABLET PO SCH (12:30)
--- NOTE | 2024-01-27 14:03 | Discharge Summary ---
Date of Service January 27, 2024 Admission HPI Per Admitting Provider Sorin eFrnandez is a 34yo male with history of HTN, BiPolar disorder, PTSD and Anxiety/Depression presenting with right sided chest pain and SOB. Patient reports progressive right sided chest pain for the last 3-4 days. Pleuritic in nature, severe, radiating into the back and flanks. He also has some shortness of breath. Nausea and diarrhea as well. Denies fever, chills, left sided chest pain, palpitations. No abdominal pain. No dizziness or syncope. He did have some pain and swelling in his right leg in the past but this was many months ago - no recent leg pain, swelling or cramping. No personal or family history of VTE. No trauma or periods of immobility. In the ER he is afebrile, HD stable, NAD ER Course: Tylenol Heparin Morphine 2mg ordered - not yet given Principal Diagnosis Pulmonary Embolism Discharge Exam Constitutional WD/WN, vitals as above Eyes PERRL, conjunctivae normal, anicteric sclerae Respiratory normal respiratory effort, lungs clear to auscultation Cardiovascular RRR, no murmur, no edema Gastrointestinal (Abdomen) normal bowel sounds, soft, nontender, no hepatosplenomegaly Discharge Data Allergies Allergy/AdvReac Type Severity Reaction Status Date / Time No Known Allergies Allergy Unverified 01/26/24 03:55 Consultations 01/26/24 03:21 ED Decision to Admit Stat Ordered Studies 01/26/24 02:00 CT angio chest PE protocol Stat Hospital Course (1) Pulmonary emboli: (2) PTSD (post-traumatic stress disorder): (3) Depression with anxiety: (4) Hypertension: (5) Bipolar affective disorder: Plan Patient is a 34 year old man presenting to the hospital for 4 day hx of SOB, right sided chest pain with chest CT done in the ER showing pulmonary emboli and right-sided pulmonary infarction Unprovoked Pulmonary emboli - presented to ER for 3 day hx of SOB, right sided chest pain - chest CT showed multiple segmental pulmonary emboli, R pleural effusion, and possible pulmonary infarction - Pt was treated with IV heparin in hospital. -Switch to PO Eliquis for outpatient: 10 mg twice a day for 7 days and then decrease to 5 mg twice a day for 3-6 months. - two-step test performed with no impact on O2 levels, no need for oxygen at home. - Short course of hydrocodone rx sent for pain control. - Recommend workup for unprovoked PE by primary care. Tobacco use Counseling given Hypertension - continue lisinopril 10 mg PO daily Depression - continue citalopram 20 mg PO daily Bipolar affective disorder - continue risperidone 0.5 mg PO daily Total Time Total Time Spent Total Time Spent (In Minutes): see attending attestation Discharge Plan Discharge Items Patient Disposition: Home - Self-Care Reason For Visit: PULMONARY EMBOLI Discharge Diagnosis: [place] Activity: Per Instructions section Non-emergency contact: Primary Care Provider Call non-emergency contact if: you have any medication questions Follow-up/Referrals: PCP,NO [Primary Care Provider] - Diet: Heart Healthy Addtl Attending Provider Instructions: You were admitted to the hospital due to a pulmonary embolism (sudden blockage in a lung artery) You were treated with IV blood thinner call heparin. You were transitioned to Eliquis which is a blood thinner that you can take at home We will sent to your pharmacy Eliquis 10 mg, take this twice a day for a total of 7 days, then take 5 mg twice a day for 3 to 6 months Is important to take this medication daily Since you are on blood thinner, you should not take medications like ibuprofen, advil, aleve, naproxen, asprin, motrin as these can increase your risk of bleeding. While on blood thinner, you can bleed easily. If you get a cut or injury and bleeding doesn't stop, you should go to the ER. For pain control we will send: Use Tylenol a needed as a first line for pain control and Hydrocodone/acetaminophen 5/325mgs as needed for breakthrough pain Total amount of Acetaminophen (Tylenol) during 24 hours should not exceed 4000mgs. Follow up with your PCP within a week of discharge to ensure continuity of care Pending Studies at Discharge: No Stand-Alone Forms: My [employer], Smoking Cessation Medications and DC Order Prescriptions: New Eliquis 5 mg Tablet 10 mg PO BID Qty: 30 0RF Rx Instructions: Take 2 tabs (10 mg) twice a day for 7 days, then 5 mg (1 tab) twice a day hydrocodone-acetaminophen 5-325 mg tablet 1 tab PO TID PRN (Reason: pain) Qty: 20 0RF Continued folic acid 400 mcg tablet 400 mcg PO DAILY citalopram 20 mg tablet 20 mg PO DAILY lisinopril 10 mg tablet 10 mg PO DAILY risperidone 0.5 mg tablet 0.5 mg PO DAILY Discharge Orders: Discharge Order (Routine); Ordered 01/27/24 Ordered By: Indira Briones/Other Patient Handouts: Pulmonary Embolism Admission Data Admit Date/Time: 01/26/24 03:53 Attending Provider: Indira Shields Admit Provider: Indigo Hicks Primary Care Provider: PCP,ALPESH Other Providers: Indigo Hicks Other Interventions: Discharge Summary Assessment (RN) Last Done: 01/27/24 14:47 Supervising Physician Co-Signing Physician Notes Attending Physician Supervision Note: I independently interviewed and examined the patient and verified the cal[place]a history and physical, reviewed labs and image studies and agree with findings and care plan noted above.
[2024-01-27 14:48] VITALS: BP 118/74; PULSE 78
== END 2024-01-27 15:29 | disposition home or self-care (01) | DRG 176 ==
LOC: ED 01:44 → EDINP 03:27 → SUATTDRO 03:27 → INTOOBSV 03:53 → 4W 16:34 → 2N 22:39